=== PATIENT | male | born 1965 | race Caucasian/White ===

== ENCOUNTER 2023-03-13 09:39 | Outpatient (CLI) | payer MEDICARE, BC ==
[~2023-03-13 09:39] MED LIST: ASPI-611 PO; ATOR10TA70 PO; CHOL100046 PO; CYCL-524 PO; DILT300C53 PO; ENOX100S3 SQ; ENOX60DI10 SQ; FOLI0.8T39 PO; FURO80TA87 PO; LABE100T8 PO; MYCO250C46 PO; TRAM50TA2 PO; TRAZ-251 PO; [UNRECOGNIZED DRUG - CODE] PO
== END 2023-03-13 23:59 | disposition home or self-care (01) ==
LOC: RAD 09:39
PROVIDERS: ATTEND Physician Assistant
DX: S83.281A Other tear of lateral meniscus, current injury, right knee, initial encounter (principal); M22.41 Chondromalacia patellae, right knee; R60.0 Localized edema; M25.461 Effusion, right knee; M65.88 Other synovitis and tenosynovitis, other site; M25.561 Pain in right knee; G89.29 Other chronic pain; X58.XXXA Exposure to other specified factors, initial encounter; Y93.89 Activity, other specified; Y92.89 Other specified places as the place of occurrence of the external cause; Y99.8 Other external cause status
CPT/HCPCS: 73721